=== PATIENT | female | born 1970 | race Caucasian/White ===

== ENCOUNTER 2016-12-05 08:00 | Day surgery (SDC) | payer OTHER ==
[~2016-12-05] VITALS: Ht 172.7 cm; Wt 99.3 kg
[2016-12-05 09:38] VITALS: Ht 172.7 cm; Wt 99.3 kg
[2016-12-05] MEDS ORDERED: SLEEP AID (09:42)
[2016-12-05 10:00] VITALS: BP 103/64; PULSE 68; RESP 23
[2016-12-05] MEDS ORDERED: FENTAnyl 50 MCG/ML VIAL ONE ×2 (11:18)
[2016-12-05] MEDS ORDERED: MIDAZOLAM 1 MG/ML 2 ML INJ ONE ×3 (11:19)
[2016-12-05 11:26] VITALS: BP 110/68; PULSE 67; RESP 14
--- NOTE | 2016-12-05 15:49 | GILP ---
DATE OF PROCEDURE: 12/05/2016 PROCEDURE: Colonoscopy and polypectomy. SURGEON: Mark Barros MD PREOPERATIVE DIAGNOSIS: The patient presenting with history of rectal bleeding, rule out colorectal neoplasm. POSTOPERATIVE DIAGNOSES: 1. The patient has got diverticulosis all over the colon. 2. There is evidence of 2 polyps noted, 1 of them at 28 cm from the anus. This is about a 3 cm lob ulated polyp with a wide stalk noted. By using the hot snare, polypectomy was performed and polyp w as retrieved. #2, there is evidence of a 1 cm wide-based polyp noted at the proximal ascending colon, and this was also removed by using the hot snare. DESCRIPTION OF PROCEDURE: After the informed written consent was obtained, the patient was asked to lie on the left lateral side. The patient was given 6 mg Versed, 200 mg of fentanyl as intravenous anesthesia. When the patient became somnolent, the Olympus video colonoscope was introduced into the rectum and advanced all the way to the cecum. Entire colon showed evidence of diverticulosis. They are all sm all in size. No bleeding noted. At about the proximal descending colon, there is evidence of a 1 cm wide-based polyp noted. This polyp was removed by using the hot snare and polyp was retrieve d and sent for histopathology. At 28 cm from the anus, there is evidence of a large polyp which is lobulated and located on a wide stalk is noted. By piecemeal type of polypectomy, the entire polyp was snared and removed. Tattooing was performed in this particular area for possible future resecti on. On the way out, no significant hemorrhoids were noted and the procedure was terminated. PLAN: Recommend wait for the pathology report. Dictated By: MARK BARROS MD NC/NTS Conf#: [id number] DID#: [id number] CC: KEITH BARNES MD; MARK BARROS MD;*EndCC*
== END 2016-12-05 13:17 | disposition home or self-care (01) ==
LOC: GIL 08:00
PROVIDERS: ATTEND Internal Medicine Gastroenterology
DX: Z12.11 Encounter for screening for malignant neoplasm of colon (principal); D12.4 Benign neoplasm of descending colon
CPT/HCPCS: 45385; 84703; 88305; J2250; J3010; Z7610